=== PATIENT | female | born 1965 | race Caucasian/White ===

== ENCOUNTER 2018-10-02 07:45 | Day surgery (SDC) | payer OTHER ==
[2018-10-02] MEDS ORDERED: Sodium Chloride 0.9% 1,000 ML IV SCH (08:15)
[2018-10-02] MEDS ORDERED: Propofol 200 MG/20 ML SDV ONE (08:34)
[2018-10-02] MEDS ORDERED: Midazolam 1 MG/ML 2 ML SDV ONE (08:34)
[2018-10-02] MEDS ORDERED: fentaNYL 100 MCG/2 ML SDV ONE (08:34)
[2018-10-02 10:15] VITALS: BP 106/69
--- NOTE | 2018-10-02 15:21 | OR ---
DATE OF PROCEDURE: 10/02/2018 PROCEDURE: Colonoscopy. FINDINGS: Normal colonoscopy. PREOPERATIVE DIAGNOSIS: Screening colonoscopy. POSTOPERATIVE DIAGNOSIS: Screening colonoscopy. RISKS: Risks, benefits, alternatives, and limitations including, but not limited to infection, bleeding, and perforation were explained to the patient who wished to proceed. PROCEDURE IN DETAIL: The patient was placed in left lateral decubitus position. Digital rectal exam was performed without abnormality. The scope was introduced and advanced atraumatically to the ileocecal valve. The scope was brought back to the ascending, transverse, descending colon, and retroflexed. No evidence of old or new blood. No masses. No polyps. No diverticulosis. No abnormalities on retroflex. The patient tolerated the procedure well. Clayton Hansen MD /[id number]
== END 2018-10-02 10:34 | disposition home or self-care (01) ==
LOC: JP.SDS 07:45
PROVIDERS: ATTEND Surgery
DX: Z12.11 Encounter for screening for malignant neoplasm of colon (principal); E78.5 Hyperlipidemia, unspecified; R73.9 Hyperglycemia, unspecified
CPT/HCPCS: 45378; J2250; J2704; J3010; J7030

== ENCOUNTER → 2023-10-24 | Day surgery (SDC) | payer BC ==
[~2023-10-24] MED LIST: Propofol 200 MG/20 ML SDV ONE; fentaNYL 50 MCG/ML SDV ONE
[2023-10-24] MEDS: Sodium Chloride 0.9% 1,000 ML IV SCH (06:45)
[2023-10-24 08:49] VITALS: BP 146/83; PULSE 80
== END ==
LOC: JP.SDS 06:29
PROVIDERS: ATTEND Surgery
DX: R10.13 Epigastric pain (principal); K22.89 Other specified disease of esophagus
CPT/HCPCS: 00731-QZ; J2704; J3010; J7030

== ENCOUNTER 2024-07-16 08:57 | Day surgery (SDC) | payer BC ==
[2024-07-16] MEDS: Lactated Ringers 1,000 ML IV SCH (09:41)
[2024-07-16] MEDS ORDERED: fentaNYL 50 MCG/ML SDV ONE (09:43)
[2024-07-16] MEDS ORDERED: Midazolam 1 MG/ML 2 ML SDV ONE (09:43)
[2024-07-16 12:16] VITALS: BP 133/80; PULSE 73
== END 2024-07-16 12:25 | disposition home or self-care (01) ==
LOC: JP.SDS 08:57
PROVIDERS: ATTEND Surgery
DX: K64.9 Unspecified hemorrhoids (principal)
CPT/HCPCS: 45398; J2250; J3010; J7120